=== PATIENT | male | born 1945 | race Caucasian/White ===

== ENCOUNTER 2018-06-09 16:49 | Outpatient (CLI) | payer MEDICARE, OTHER | END 2018-06-09 16:50 | disposition critical access hospital (66) | LOC: EMS 16:49 | PROVIDERS: ATTEND Surgery | DX: R11.2 Nausea with vomiting, unspecified (principal); R42 Dizziness and giddiness; R53.1 Weakness | CPT/HCPCS: A0425; A0429 ==

== ENCOUNTER 2018-06-09 17:23 | Emergency (ER) | payer MEDICARE, OTHER ==
[2018-06-09] MEDS ORDERED: SODIUM CHLORIDE 0.9% 1,000 ML IV ONE (18:03)
[2018-06-09] MEDS ORDERED: ONDANSETRON 4 MG/2 ML VIAL IVP STA (18:03)
[2018-06-09 18:04] LABS: BASOPHILS % (AUTO) 0.3 %; EOSINOPHILS # (AUTO) 0.1 10^3/uL (0.0-0.7); EOSINOPHILS % (AUTO) 0.8 %; HGB - HEMOGLOBIN 15.8 g/dL (14.0-18.0); LYMPHOCYTES # (AUTO) 0.2 10^3/uL (1.5-3.5); LYMPHOCYTES % (AUTO) 2.3 %; MEAN CORPUSCULAR HEMOGLOBIN 30.9 pg (27.0-31.0); MEAN PLATELET VOLUME 7.7 fL (7.4-11.4); MONOCYTES # (AUTO) 0.5 10^3/uL (0.0-1.0); MONOCYTES % (AUTO) 4.5 %; NEUTROPHILS % (AUTO) 92.1 %; PLT - PLATELET COUNT 187 10^3/uL (130-450); RED CELL DISTRIBUTION WIDTH 13.8 % (12.0-15.0); WHITE BLOOD COUNT 10.8 x10^3/uL (4.8-10.8)
--- NOTE | 2018-06-09 18:04 | ED Physician Documentation ---
PD HPI NVD - Stated complaint Stated Complaint: DIZZY - Chief complaint Chief Complaint: Abd Pain - History obtained from History obtained from: Patient - History of Present Illness Timing - onset: Other (This is a 72-year-old gentleman with history of hypertension who was in the emergency department a few days ago with his and was exposed to influenza. Today he became acutely sick with body aches, several episodes of nausea and vomiting and slight abdominal discomfort. He denies diarrhea or rash. No fevers but he has had chills.) Review of Systems Constitutional: reports: Chills, Myalgias, Fatigue. denies: Fever Nose: denies: Rhinorrhea / runny nose, Congestion Cardiac: denies: Chest pain / pressure, Palpitations Respiratory: denies: Dyspnea, Cough GI: reports: Nausea, Vomiting. denies: Diarrhea PD PAST MEDICAL HISTORY - Present Medications Home Medications: Ambulatory Orders Medication Instructions Recorded Confirmed Aspirin Chewable [[facility] 81 mg PO DAILY 06/09/18 06/09/18 Aspirin] Atorvastatin [Lipitor] 0 mg 06/09/18 Lisinopril 10 mg PO 06/09/18 Loratadine/Pseudoephedrine 1 each PO 06/09/18 [Claritin-D 12 Hour Tablet] Ondansetron Odt [Zofran] 4 mg TL Q6H PRN #10 tablet 06/09/18 Potassium Chloride [K-Dur] 20 meq PO ONCE 06/09/18 06/09/18 Tamsulosin HCl [Flomax] 0.4 mg PO 06/09/18 hydroCHLOROthiazide 25 mg PO 06/09/18 [Hydrochlorothiazide] - Allergies Allergies/Adverse Reactions: Allergies Allergy/AdvReac Type Severity Reaction Status Date / Time Sulfa (Sulfonamide Allergy Unknown Verified 06/09/18 17:31 Antibiotics) PD ED PE NORMAL - Vitals Vital signs reviewed: Yes - General General: Alert and oriented X 3, No acute distress - HEENT HEENT: PERRL, EOMI - Neck Neck: Supple, no meningeal sign, No bony TTP - Cardiac Cardiac: RRR, No murmur - Respiratory Respiratory: No respiratory distress, Clear bilaterally - Abdomen Abdomen: Soft, Non tender - Back Back: No CVA TTP, No spinal TTP - Derm Derm: Normal color, Warm and dry, No rash - Neuro Neuro: Alert and oriented X 3, Normal speech Results - Vitals Vitals: Vital Signs - 24 hr 06/09/18 17:28 Temperature 37 C Heart Rate 73 Respiratory 20 Rate Blood Pressure 121/71 O2 Saturation 93 Oxygen O2 Source Room air - EKG (time done) 1803 Rate: Rate (enter#) (73) Rhythm: NSR [place]: Normal Intervals: Prolonged MO QRS: Normal Ischemia: Q waves (inferior) Computer interpretation: Agree with computer - Labs Labs: Laboratory Tests 06/09/18 06/09/18 06/09/18 17:57 17:57 18:09 WBC 10.8 RBC 5.10 Hgb 15.8 Hct 46.4 MCV 91.0 MCH 30.9 MCHC 34.0 RDW 13.8 Plt Count 187 MPV 7.7 Neut # (Auto) 10.0 H Lymph # (Auto) 0.2 L [place] # (Auto) 0.5 Eos # (Auto) 0.1 Baso # (Auto) 0.0 Absolute Nucleated RBC 0.00 Nucleated RBC % 0.0 Sodium 140 Potassium 3.0 L Chloride 99 L Carbon Dioxide 32 Anion Gap 9.0 BUN 24 H Creatinine 0.9 Estimated GFR (MDRD) 83 L Glucose 132 H POC Whole Bld Glucose 110 H Calcium 9.1 Total Bilirubin 0.7 AST 26 ALT 27 Alkaline Phosphatase 77 Total Protein 6.7 Albumin 4.2 Globulin 2.5 Albumin/Globulin Ratio 1.7 Lipase 27 Influenza A (Rapid) Influenza B (Rapid) 06/09/18 18:15 WBC RBC Hgb Hct MCV MCH MCHC RDW Plt Count MPV Neut # (Auto) Lymph # (Auto) [place] # (Auto) Eos # (Auto) Baso # (Auto) Absolute Nucleated RBC Nucleated RBC % Sodium Potassium Chloride Carbon Dioxide Anion Gap BUN Creatinine Estimated GFR (MDRD) Glucose POC Whole Bld Glucose Calcium Total Bilirubin AST ALT Alkaline Phosphatase Total Protein Albumin Globulin Albumin/Globulin Ratio Lipase Influenza A (Rapid) Negative Influenza B (Rapid) Negative PD MEDICAL DECISION MAKING - ED course ED course: This is a 72-year-old gentleman who was exposed to the flu and has body aches, vomiting, myalgias and chills. Likely influenza. His flu swab was negative, of course the sensitivity of this is not 100% but he was feeling much better after IV fluids and Zofran. Departure - Departure Disposition: 01 Home, Self Care Clinical Impression: Viral syndrome, Dehydration Vomiting Qualifiers: Vomiting type: unspecified Vomiting Intractability: non-intractable Nausea presence: with nausea Qualified Code(s): R11.2 - Nausea with vomiting, unspecified Condition: Good Record reviewed to determine appropriate education?: Yes Instructions: ED Viral Syndrome, ED Nausea Vomiting Prescriptions: Ondansetron Odt [Zofran] 4 mg TL Q6H PRN #10 tablet PRN Reason: Nausea / Vomiting Comments: Call your doctor to arrange a follow-up appointment, make the next available appointment. In the interim, return anytime if worse or if new symptoms develop.
[2018-06-09 18:32] LABS: ALBUMIN 4.2 g/dL (3.2-5.5); ALBUMIN/GLOBULIN RATIO 1.7 (1.0-2.2); BILIRUBIN,TOTAL 0.7 mg/dL (0.2-1.0); CALCIUM 9.1 mg/dL (8.5-10.3); CREATININE 0.9 mg/dL (0.6-1.2); TOTAL PROTEIN 6.7 g/dL (6.7-8.2)
[2018-06-09 19:21] VITALS: BP 153/88
== END 2018-06-09 19:20 | disposition home or self-care (01) ==
LOC: ED 17:23
DX: B34.9 Viral infection, unspecified (principal); E86.0 Dehydration; I44.0 Atrioventricular block, first degree; I10 Essential (primary) hypertension; Z79.82 Long term (current) use of aspirin
CPT/HCPCS: 36415; 80053; 83690; 85025; 87275; 87276; 93005; 96374; 99283; 99284

== ENCOUNTER 2019-09-27 23:33 | Emergency (ER) | payer MEDICARE, OTHER ==
--- NOTE | 2019-09-28 00:02 | ED Physician Documentation ---
History of Present Illness - Stated complaint Stated Complaint: BP CONCERN/NO SX - Chief complaint Chief Complaint: Cardiac - History obtained from History obtained from: Patient (The patient is a 73-year-old male with a known history of hypertension on lisinopril and hydrochlorothiazide daily. He also takes Loratadine and pseudoephedrinePatient denies chest pain, syncope, visual or hearing loss, swelling or any complaints.Patient reports his made him come here tonight), Other (After he checked his blood pressure at home and noted it to be 160/90.He denies any complaints whatsoever.) Review of Systems Constitutional: reports: Reviewed and negative Eyes: reports: Reviewed and negative Ears: reports: Reviewed and negative Nose: reports: Reviewed and negative Throat: reports: Reviewed and negative Cardiac: reports: Other (Hypertension) Respiratory: reports: Reviewed and negative GI: reports: Reviewed and negative : reports: Reviewed and negative Skin: reports: Reviewed and negative Musculoskeletal: reports: Reviewed and negative Neurologic: reports: Reviewed and negative Psychiatric: reports: Reviewed and negative Endocrine: reports: Reviewed and negative Immunocompromised: reports: Reviewed and negative PD PAST MEDICAL HISTORY - Past Medical History Past Medical History: Yes Cardiovascular: Hypertension, High cholesterol Respiratory: None Neuro: None Endocrine/Autoimmune: None GI: None : Benign prostate hypertrophy HEENT: None Psych: None Musculoskeletal: None Derm: None - Past Surgical History Past Surgical History: No - Present Medications Home Medications: Ambulatory Orders Medication Instructions Recorded Confirmed Aspirin Chewable [[facility] 81 mg PO DAILY 06/09/18 06/09/18 Aspirin] Atorvastatin [Lipitor] 0 mg 06/09/18 Loratadine/Pseudoephedrine 1 each PO 06/09/18 [Claritin-D 12 Hour Tablet] Ondansetron Odt [Zofran] 4 mg TL Q6H PRN #10 tablet 06/09/18 Potassium Chloride [K-Dur] 20 meq PO ONCE 06/09/18 06/09/18 Tamsulosin HCl [Flomax] 0.4 mg PO 06/09/18 hydroCHLOROthiazide 25 mg PO 06/09/18 [Hydrochlorothiazide] lisinopriL [Lisinopril] 10 mg PO 06/09/18 - Allergies Allergies/Adverse Reactions: Allergies Allergy/AdvReac Type Severity Reaction Status Date / Time Sulfa (Sulfonamide Allergy Unknown Verified 09/27/19 23:38 Antibiotics) - Social History Does the pt smoke?: No Smoking Status: Never smoker Does the pt drink ETOH?: No Does the pt have substance abuse?: No - Immunizations Immunizations are current?: Yes - POLST Patient has POLST: No PD ED PE NORMAL - Vitals Vital signs reviewed: Yes - General General: Alert and oriented X 3, No acute distress, Well developed/nourished - HEENT HEENT: PERRL - Neck Neck: Supple, no meningeal sign, Thyroid normal, No JVD, No bruit - Cardiac Cardiac: RRR, No murmur, Strong equal pulses - Respiratory Respiratory: No respiratory distress, Clear bilaterally - Abdomen Abdomen: Normal bowel sounds, Soft, Non tender, Non distended, No organomegaly - Back Back: No CVA TTP, No spinal TTP - Derm Derm: Normal color, Warm and dry, No rash - Extremities Extremities: No deformity, No tenderness to palpate, Normal ROM s pain, No edema, No calf tenderness / cord - Neuro Neuro: Alert and oriented X 3, 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 Recommend the patient continue his hydrochlorothiazide and lisinopril as directed and discontinue the use of pseudoephedrine. Follow-up with your primary care provider tomorrow.) Departure - Departure Disposition: 01 Home, Self Care Clinical Impression: Seasonal allergies Hypertension Qualifiers: Hypertension type: unspecified Qualified Code(s): I10 - Essential (primary) hypertension Condition: Stable Instructions: Hypertension Dc Follow-Up: Debi Monzon MD [Primary Care Provider] - Comments: Discontinue the loratadine/pseudoephedrine. You may continue loratadine but discontinue the use of pseudoephedrine.Call your primary care provider this week for follow-up.Continue to take your hydrochlorothiazide and lisinopril as direct ed.Decrease your salt intake.
[2019-09-28 00:27] VITALS: BP 159/101
== END 2019-09-28 00:27 | disposition home or self-care (01) ==
LOC: ED 23:33
DX: I10 Essential (primary) hypertension (principal); J30.2 Other seasonal allergic rhinitis; Z79.82 Long term (current) use of aspirin
CPT/HCPCS: 99282

== ENCOUNTER 2022-07-06 14:04 | Emergency (ER) | payer MEDICARE, OTHER ==
[2022-07-06] MEDS ORDERED: LIDOCAINE 1%-EPI 1:100000 20 ML MDV SUBQ STA (14:35)
[2022-07-06] MEDS ORDERED: SILVER NITRATE APPLICATOR TOP STA (14:35)
--- NOTE | 2022-07-06 14:36 | ED Physician Documentation ---
PD HPI WOUND RECHECK - Stated complaint Stated Complaint: RT FOOT BLEEDING TOP/BOTTOM - Chief complaint Chief Complaint: Wound - Histroy obtained from History obtained from: Patient - Additional information Additional information: He had a right second toe amputation that yesterday by Dr. Blanch[facility] in [place]. The reason for the amputation was that his right toe was rubbing on the great toe and giving him problems walking. At some point overnight he developed blood on the dressing. PD PAST MEDICAL HISTORY - Past Medical History Cardiovascular: Hypertension, High cholesterol Respiratory: None Neuro: None Endocrine/Autoimmune: None GI: None : Benign prostate hypertrophy HEENT: None Psych: None Musculoskeletal: None Derm: None - Past Surgical History Past Surgical History: No - Present Medications Home Medications: Ambulatory Orders Medication Instructions Recorded Confirmed Aspirin Chewable [[facility] 81 mg PO DAILY 06/09/18 06/09/18 Aspirin] Atorvastatin [Lipitor] 0 mg 06/09/18 Loratadine/Pseudoephedrine 1 each PO 06/09/18 [Claritin-D 12 Hour Tablet] Ondansetron Odt [Zofran] 4 mg TL Q6H PRN #10 tablet 06/09/18 Potassium Chloride [K-Dur] 20 meq PO ONCE 06/09/18 06/09/18 Tamsulosin HCl [Flomax] 0.4 mg PO 06/09/18 hydroCHLOROthiazide 25 mg PO 06/09/18 [Hydrochlorothiazide] lisinopriL [Lisinopril] 10 mg PO 06/09/18 - Allergies Allergies/Adverse Reactions: Allergies Allergy/AdvReac Type Severity Reaction Status Date / Time Sulfa (Sulfonamide Allergy Unknown Verified 07/06/22 14:22 Antibiotics) - Social History Does the pt smoke?: No Smoking Status: Never smoker Does the pt drink ETOH?: No Does the pt have substance abuse?: No - Immunizations Immunizations are current?: Yes - POLST Patient has POLST: No PD ED PE NORMAL - Vitals Vital signs reviewed: Yes - General General: Alert and oriented X 3, No acute distress - Derm Derm: Normal color, Warm and dry - Extremities Extremities: Other (There is a approximated suture line with some blood on the dressing at the site of the right second toe which is surgically absent. There are some very small areas of gaping of the wound with slight venous oozing.) - Neuro Neuro: Alert and oriented X 3, Normal speech Results - Vitals Vitals: Vital Signs - 24 hr 07/06/22 14:14 Temperature 36.5 C Heart Rate 63 Respiratory 17 Rate Blood Pressure 114/65 O2 Saturation 96 Oxygen O2 Source Room air PD Medical Decision Making - ED course ED course: There were 2 areas that were oozing. He was locally infiltrated with lidocaine with epinephrine and then these areas were cauterized with silver nitrate with hemostasis and he was redressed. Departure - Departure Disposition: 01 Home, Self Care Clinical Impression: Postoperative bleeding from incision Condition: Good Record reviewed to determine appropriate education?: Yes Instructions: ED Wound Check Post Op Bleeding Comments: Let your surgeon know about this occurrence. They may want to see you sooner than was otherwise anticipated. Return if worse. Minimal weightbearing and elevate is much as possible.
[2022-07-06 14:54] VITALS: BP 103/61
== END 2022-07-06 15:03 | disposition home or self-care (01) ==
LOC: ED 14:04
DX: M96.831 Postprocedural hemorrhage of a musculoskeletal structure following other procedure (principal); I10 Essential (primary) hypertension; E78.00 Pure hypercholesterolemia, unspecified; Z79.82 Long term (current) use of aspirin; Z79.899 Other long term (current) drug therapy
CPT/HCPCS: 99282; 99283